=== PATIENT | female | born 1995 | race Caucasian/White ===

== ENCOUNTER → 2017-11-08 | Outpatient (CLI) | payer OTHER ==
[2017-11-08 15:06] LABS: PROLACTIN 7.9 NG/ML
== END ==
LOC: M SMT 11:13
DX: L68.0 Hirsutism (principal)
CPT/HCPCS: 84146

== ENCOUNTER → 2017-11-28 | Outpatient (CLI) | payer OTHER | LOC: M RAD 09:26 | DX: L68.0 Hirsutism (principal) | CPT/HCPCS: 76856 ==